=== PATIENT | male | born 1940 | race Two or more races ===

== ENCOUNTER 2024-06-12 20:04 | Inpatient (IN) | payer MEDICARE, MEDICAID ==
[~2024-06-12] VITALS: Ht 167.6 cm; Wt 70.3 kg
[2024-06-12 21:06] LABS: BASOPHILS # (AUTO) 0.1 K/uL (0.0-0.2); BASOPHILS % (AUTO) 0.4 % (0.0-2.0); EOSINOPHILS # (AUTO) 0.7 K/uL (0.0-0.7); EOSINOPHILS % (AUTO) 4.1 % (0.0-6.0); HEMATOCRIT 51 % (39-51); LYMPHOCYTES # (AUTO) 2.4 K/uL (0.8-4.8); LYMPHOCYTES % (AUTO) 15.1 % (20.0-44.0); MEAN CORPUSCULAR HEMOGLOBIN 19 PG (26.0-33.0); MEAN CORPUSCULAR HGB CONC 31 g/dl (31.0-36.0); MEAN CORPUSCULAR VOLUME 63 fL (80-96); MONOCYTES % (AUTO) 6.2 % (2.0-12.0); NEUTROPHILS % (AUTO) 74.2 % (43.0-81.0); PLATELET COUNT (AUTO) 255 K/uL (150-450); RED CELL DISTRIBUTION WIDTH 18.6 % (11.5-15.0); WHITE BLOOD COUNT (AUTO) 16.1 K/uL (4.3-11.0)
[2024-06-12 21:20] LABS: CALCIUM, SERUM 8.5 mg/dL (8.5-10.1); CARBON DIOXIDE 23 mmol/L (21-32); CHLORIDE 103 mmol/L (98-107); CREATININE 1.6 mg/dL (0.6-1.3); GLUCOSE 112 mg/dL (74-106); POTASSIUM 4.7 mmol/L (3.5-5.1); SODIUM SERUM 135 mmol/L (136-145); UREA NITROGEN, BLOOD 23 mg/dL (7-18)
[2024-06-12] MEDS ORDERED: IV NS 0.9% 250 ML IV ONE (21:24)
[2024-06-12] MEDS ORDERED: IOHEXOL-350 100 ML VIAL IV ONE (21:24)
[2024-06-12 21:29] LABS: RED BLOOD CELL COUNT(AUTO) 8.21 MIL/uL (4.5-6.0)
[2024-06-12 21:33] LABS: ALANINE AMINOTRANSFERASE 15 U/L (12-78); ALKALINE PHOSPHATASE 68 U/L (46-116); ASPARTATE AMINOTRANSFERASE 16 U/L (15-37); BILIRUBIN,DIRECT 0.2 mg/dL (0.0-0.2); BILIRUBIN,TOTAL 0.8 mg/dL (0.2-1.0); INR 1.18 (0.91-1.10); NT-PRO BNP 780 pg/mL (0-125); PROTHROMBIN TIME 12.1 SECS (9.2-11.1); TOTAL PROTEIN, SERUM 6.6 g/dL (6.4-8.2)
[2024-06-12 21:42] LABS: ALBUMIN 3.2 g/dL (3.4-5.0)
[2024-06-12] MEDS: IV NS 0.9% 1,000 ML BAG IV ONE (21:47)
[2024-06-12] MEDS ORDERED: MAGNESIUM HYDROXIDE 30 ML UDC PO PRN (23:00)
[2024-06-12] MEDS ORDERED: Z GUARD REMEDY 4 OZ OINT TP PRN (23:00)
[2024-06-12] MEDS ORDERED: ONDANSETRON HCL/PF 4 MG/2 ML VIAL IVP PRN (23:00)
[2024-06-12] MEDS ORDERED: NITROGLYCERIN 0.4 MG/TAB BOTTLE SL PRN (23:00)
[2024-06-12] MEDS ORDERED: MAG HYDROX/AL HYDROX/SIMETH 30 ML UDC PO PRN (23:00)
[2024-06-12 23:15] VITALS: BP 177/89; TEMP 97.5; O2SAT 96
[2024-06-12 23:16] LABS: D-DIMER 1.94 mg/L(FEU (0.17-0.50)
[2024-06-12] MEDS: HEPARIN SODIUM, PORCINE 5000 UNITS/1 ML VIAL SQ SCH (23:43)
[2024-06-12] MEDS: FUROSEMIDE 20 MG/2 ML VIAL IV SCH (23:47)
[2024-06-12 23:51] LABS: BAND % (MANUAL) 1 % (0.0-5.0); EOSINOPHILS % (MANUAL) 3 % (0-4); LYMPHOCYTES % (MANUAL) 12 % (16-48); MONOCYTES % (MANUAL) 6 % (0-11.0); NEUTROPHILS % (MANUAL) 78 (42-76)
[2024-06-12 23:52] LABS: ANISOCYTOSIS 1+; OVALOCYTES 1+; PLATELET ESTIMATE ADEQUATE
[2024-06-13] MEDS: ACETAMINOPHEN 325 MG TABLET PO PRN (01:25)
[2024-06-13 04:01] VITALS: BP 139/72; TEMP 97.7; O2SAT 98
[2024-06-13 04:43] VITALS: BP 139/72; TEMP 97.7; O2SAT 98
[2024-06-13] MEDS: PANTOPRAZOLE 40 MG TABLET.DR PO SCH (06:33)
[2024-06-13 06:52] LABS: INR 1.09 (0.91-1.10); PROTHROMBIN TIME 11.5 SECS (9.2-11.1)
[2024-06-13 07:02] LABS: BASOPHILS # (AUTO) 0.1 K/uL (0.0-0.2); BASOPHILS % (AUTO) 0.6 % (0.0-2.0); EOSINOPHILS # (AUTO) 0.6 K/uL (0.0-0.7); EOSINOPHILS % (AUTO) 3.6 % (0.0-6.0); HEMATOCRIT 51 % (39-51); HEMOGLOBIN 16.2 g/dL (13.5-17.5); LYMPHOCYTES # (AUTO) 2.2 K/uL (0.8-4.8); LYMPHOCYTES % (AUTO) 14.2 % (20.0-44.0); MEAN CORPUSCULAR HEMOGLOBIN 20 PG (26.0-33.0); MEAN CORPUSCULAR HGB CONC 32 g/dl (31.0-36.0); MEAN CORPUSCULAR VOLUME 62 fL (80-96); MONOCYTES # (AUTO) 1.1 K/uL (0.1-1.30); NEUTROPHILS # (AUTO) 11.7 K/uL (1.8-8.9); NEUTROPHILS % (AUTO) 74.6 % (43.0-81.0); PLATELET COUNT (AUTO) 246 K/uL (150-450); RED CELL DISTRIBUTION WIDTH 18.3 % (11.5-15.0); WHITE BLOOD COUNT (AUTO) 15.7 K/uL (4.3-11.0)
[2024-06-13 07:23] LABS: RED BLOOD CELL COUNT(AUTO) 8.31 MIL/uL (4.5-6.0)
[2024-06-13 07:30] LABS: ALANINE AMINOTRANSFERASE 16 U/L (12-78); ALKALINE PHOSPHATASE 76 U/L (46-116); ASPARTATE AMINOTRANSFERASE 18 U/L (15-37); BILIRUBIN,DIRECT 0.1 mg/dL (0.0-0.2); BILIRUBIN,TOTAL 0.6 mg/dL (0.2-1.0); CALCIUM, SERUM 8.7 mg/dL (8.5-10.1); CARBON DIOXIDE 24 mmol/L (21-32); CHLORIDE 108 mmol/L (98-107); CREATININE 1.6 mg/dL (0.6-1.3); GLUCOSE 128 mg/dL (74-106); MAGNESIUM 2.1 mg/dL (1.8-2.4); NT-PRO BNP 682 pg/mL (0-125); PHOSPHORUS 3.7 mg/dL (2.5-4.9); POTASSIUM 4.8 mmol/L (3.5-5.1); SODIUM SERUM 142 mmol/L (136-145); TOTAL PROTEIN, SERUM 6.7 g/dL (6.4-8.2); UREA NITROGEN, BLOOD 22 mg/dL (7-18)
[2024-06-13 07:33] LABS: CHOLESTEROL 129 mg/dL (<200); HDL CHOLESTEROL 29 mg/dL (40-60); LDL 82 mg/dL (0-99); TRIGLYCERIDES 218 mg/dL (30-150)
[2024-06-13 08:00] VITALS: BP 149/77; TEMP 97.7; O2SAT 94
[2024-06-13 08:14] LABS: BAND % (MANUAL) 2 % (0.0-5.0); EOSINOPHILS % (MANUAL) 4 % (0-4); LYMPHOCYTES % (MANUAL) 18 % (16-48); MONOCYTES % (MANUAL) 5 % (0-11.0); MYELOCYTES % 1 % (0-0); NEUTROPHILS % (MANUAL) 70 (42-76)
[2024-06-13 08:15] LABS: ANISOCYTOSIS 2+; HYPOCHROMASIA 1+; PLATELET ESTIMATE ADEQUATE
[2024-06-13 08:16] LABS: OVALOCYTES 1+
[2024-06-13] MEDS ORDERED: FUROSEMIDE 20 MG/2 ML VIAL IV SCH (09:00)
[2024-06-13] MEDS ORDERED: HEPARIN SODIUM, PORCINE 5000 UNITS/1 ML VIAL SQ SCH (09:00)
[2024-06-13] MEDS ORDERED: HEPARIN INFUSION/D5W 500 ML IV PRN (10:30)
[2024-06-13] MEDS: FUROSEMIDE 40 MG/4 ML VIAL IV SCH (11:56)
[2024-06-13 12:00] VITALS: BP 167/88; TEMP 98; O2SAT 94
[2024-06-13] MEDS: HEPARIN SODIUM, PORCINE 5000 UNITS/1 ML VIAL IV ONE (14:22)
[2024-06-13] MEDS: HEPARIN INFUSION/D5W 500 ML IV PRN (14:23)
[2024-06-13] MEDS ORDERED: ERGO500093 PO (15:08)
[2024-06-13] MEDS ORDERED: APIX5TAB PO (15:08)
[2024-06-13] MEDS ORDERED: FERR325T24 PO (15:08)
[2024-06-13] MEDS ORDERED: OMEP40CA21 PO (15:08)
[2024-06-13] MEDS ORDERED: ZOLP10TA2 PO (15:08)
[2024-06-13] MEDS ORDERED: ROSU10TA29 PO (15:08)
[2024-06-13] MEDS ORDERED: BENA20TA9 PO (15:08)
[2024-06-13] MEDS ORDERED: AMLO-213 PO (15:08)
[2024-06-13 16:00] VITALS: BP 157/94; TEMP 98.2; O2SAT 94
[2024-06-13 20:30] VITALS: BP 143/91; TEMP 97.5; O2SAT 95
== END 2024-06-13 22:15 | disposition left against medical advice (07) | DRG 291 ==
LOC: ER 20:06 → TELE 22:21
PROVIDERS: ADMIT Nurse Practitioner Family; ATTEND Nurse Practitioner Acute Care
DX: I13.0 Hypertensive heart and chronic kidney disease with heart failure and stage 1 through stage 4 chronic kidney disease, or unspecified chronic kidney disease (principal); I26.99 Other pulmonary embolism without acute cor pulmonale; I50.23 Acute on chronic systolic (congestive) heart failure; N17.0 Acute kidney failure with tubular necrosis; E46 Unspecified protein-calorie malnutrition; E87.1 Hypo-osmolality and hyponatremia; N13.30 Unspecified hydronephrosis; I27.82 Chronic pulmonary embolism; I82.433 Acute embolism and thrombosis of popliteal vein, bilateral; I82.413 Acute embolism and thrombosis of femoral vein, bilateral; Z95.828 Presence of other vascular implants and grafts; D64.9 Anemia, unspecified; D72.829 Elevated white blood cell count, unspecified; E11.22 Type 2 diabetes mellitus with diabetic chronic kidney disease; E66.01 Morbid (severe) obesity due to excess calories; E78.5 Hyperlipidemia, unspecified; E88.09 Other disorders of plasma-protein metabolism, not elsewhere classified; I25.10 Atherosclerotic heart disease of native coronary artery without angina pectoris; M89.8X9 Other specified disorders of bone, unspecified site; N18.9 Chronic kidney disease, unspecified; Z79.01 Long term (current) use of anticoagulants; F03.90 Unspecified dementia, unspecified severity, without behavioral disturbance, psychotic disturbance, mood disturbance, and anxiety; Z68.25 Body mass index [BMI] 25.0-25.9, adult; N40.0 Benign prostatic hyperplasia without lower urinary tract symptoms; Z53.29 Procedure and treatment not carried out because of patient's decision for other reasons
CPT/HCPCS: 36415; 71045-TC; 76770-TC; 80048-TC; 80061-TC; 80076-TC; 83735-TC; 83880; 84100-TC; 84443-TC; 84484-TC; 85025-TC; 85378-TC; 85610-TC; 85730-TC; 93307-TC; 93970-TC; A4223; G0378; J1644; J1940; J7050; Q9967